=== PATIENT | male | born 2000 | race Caucasian/White ===

== ENCOUNTER 2023-01-25 19:11 | Emergency (ER) | payer OTHER, SELFPAY ==
[2023-01-25 19:31] VITALS: BP 118/58; PULSE 102; RESP 16; TEMP 37.2; O2SAT 100
--- NOTE | 2023-01-25 19:36 | ED.URI ---
HPI - URI/Sore Throat General Chief Complaint: Upper Respiratory Infection Stated Complaint: Congestion;Sore Throat;Fever Time Seen by Provider: 01/25/23 19:31 Source: patient and RN notes reviewed Mode of arrival: ambulatory Limitations: no limitations History of Present Illness HPI Narrative: Patient presents today with 1 week history of postnasal drip, sore throat, congestion, left ear pain, chills and sweats, body aches. Currently rates his pain 7/10 and has been taking DayQuil with mild relief. Denies known sick contacts. No history of asthma or COPD. He is a nonsmoker. Patient was on amoxicillin a month ago for 10 days for upper respiratory symptoms. Related Data Allergies Allergy/AdvReac Type Severity Reaction Status Date / Time No Known Allergies Allergy Verified 01/25/23 19:28 Review of Systems Review of Systems: CONSTITUTIONAL: Denies fever..+ body aches, chills, EYES: Denies visual changes, redness, or discharge. ENT: Denies rhinorrhea. + congestion, sore throat, postnasal drip, left ear pain CARDIOVASCULAR: Denies chest pain, palpitations, or edema. RESPIRATORY: Denies cough or dyspnea. GASTROINTESTINAL: Denies abdominal pain, nausea, vomiting, or diarrhea. GENITOURINARY: Denies dysuria or hematuria. SKIN: Denies rash, itching, or wounds. MUSCULOSKELETAL: Denies back pain, joint pain, or myalgia. NEUROLOGIC: Denies headache, numbness, tingling, or weakness. PSYCH: Denies depression or anxiety. PMFSH Comments At time of signature, I have reviewed and agree with nursing past medical, surgical, social and family history unless otherwise noted. Please see nursing chart for further information. There is no relevant family history pertinent to the presenting complaint Exam Narrative: GENERAL: Well-appearing, well-nourished, and in no acute distress. HEAD: Normocephalic, atraumatic. EYES: EOMI. No redness or drainage. Conjunctivae normal. ENT: Mucous membranes pink and moist. Nares clear. No rhinorrhea. TMs normal bilaterally. Throat erythematous posteriorly with mild amount of postnasal drainage. No edema or exudate. Uvula midline. NECK: Normal AROM. Supple. No lymphadenopathy. CHEST: No respiratory distress. Clear to auscultation. HEART: Regular rate and rhythm. No murmur appreciated. Normal peripheral pulses. EXTREMITIES: Normal range of motion. No edema. SKIN: Warm, dry, no rash. Capillary refill normal. Normal skin turgor. NEURO: No focal deficits. Alert and oriented x3. Gait steady. PSYCH: Normal affect. No signs of depression or anxiety. Course Course Level of Care: Express Care Visit Vital Signs Vital signs: Vital Signs Temperature 99 F 01/25/23 19:31 Pulse Rate 102 H 01/25/23 19:31 Respiratory Rate 16 01/25/23 19:31 Blood Pressure 118/58 L 01/25/23 19:31 Pulse Oximetry 100 01/25/23 19:31 Temperature 99 F 01/25/23 19:31 Pulse Rate 102 H 01/25/23 19:31 Respiratory Rate 16 01/25/23 19:31 Blood Pressure 118/58 L 01/25/23 19:31 Pulse Oximetry 100 01/25/23 19:31 Reviewed MDM - URI/Sore Throat MDM Narrative Medical decision making narrative: Rapid strep positive. Prescription for amoxicillin sent to pharmacy. Anticipatory guidance given.. Differential Diagnosis Differential diagnosis: Likely upper respiratory infection, otitis media, sinusitis, viral infection, pharyngitis and other (Strep throat) Lab Data Attestation: I reviewed the patient's lab results. Lab results narrative: Rapid strep positive Critical Care Time Critical Care Time Critical Care Time: No Discharge Plan Discharge Clinical Impression: Strep throat Patient Disposition: Home, Self-Care Condition: Stable Instructions: Antibiotic Form, Strep Throat (DC) Additional Instructions: Your rapid strep screen is positive. Please take the Keflex as prescribed until gone. You will be contagious for 24 hours after starting the medication. Take ibuprofen orall
== END 2023-01-25 19:48 | disposition home or self-care (01) ==
PROVIDERS: Emergency Provider Nurse Practitioner
DX: J02.0 Streptococcal pharyngitis (principal)
CPT/HCPCS: 87880; 99213; G0463

== ENCOUNTER 2025-04-06 16:19 | Emergency (ER) | payer OTHER, SELFPAY ==
[2025-04-06 16:33] VITALS: BP 102/51; PULSE 137; RESP 18; TEMP 38.8; O2SAT 100
[2025-04-06 17:01] LABS: EDCOVIDSCREEN Negative (Negative); EDINFLUASCREEN Negative (Negative); EDINFLUBSCREEN Negative (Negative)
[2025-04-06 17:01] LABS: EDSTREPNEGPOS1 Positive (Negative)
--- NOTE | 2025-04-06 17:16 | ED.URI ---
HPI - URI/Sore Throat General Chief Complaint: Upper Respiratory Infection Stated Complaint: sick Time Seen by Provider: 04/06/25 17:11 Source: patient and RN notes reviewed Mode of arrival: ambulatory Limitations: no limitations History of Present Illness HPI Narrative: 24-year-old male patient presents today complaining of chills body aches, sore throat, nasal congestion, chest burning since yesterday, worse symptoms today. He has been taking Tylenol and ibuprofen with mild relief. No recent antibiotic use. Related Data Allergies Allergy/AdvReac Type Severity Reaction Status Date / Time No Known Allergies Allergy Verified 04/06/25 16:25 [facility] Comments At time of signature, I have reviewed and agree with nursing past medical, surgical, social and family history unless otherwise noted. Please see nursing chart for further information. There is no relevant family history pertinent to the presenting complaint Exam Narrative: GENERAL: Mildly ill-appearing, well-nourished, and in no acute distress. HEAD: Normocephalic, atraumatic. EYES: EOMI. No redness or drainage. Conjunctivae normal. ENT: Mucous membranes pink and moist. Nares clear. No rhinorrhea. TMs normal bilaterally. Throat mildly erythematous without edema or exudate. Uvula midline. NECK: Normal AROM. Supple. No lymphadenopathy. CHEST: No respiratory distress. Clear to auscultation. HEART: Regular rhythm. No murmur appreciated.+ tachycardic EXTREMITIES: Normal range of motion. No edema. SKIN: Warm, dry, no rash. Capillary refill normal. Normal skin turgor. NEURO: No focal deficits. Alert and oriented x3. Gait steady. PSYCH: Normal affect. No signs of depression or anxiety. Course Course Level of Care: Express Care Visit Vital Signs Vital signs: Vital Signs Temperature 101.9 F H 04/06/25 16:33 Pulse Rate 137 H 04/06/25 16:33 Respiratory Rate 18 04/06/25 16:33 Blood Pressure 102/51 L 04/06/25 16:33 Pulse Oximetry 100 04/06/25 16:33 Temperature 101.9 F H 04/06/25 16:33 Pulse Rate 137 H 04/06/25 16:33 Respiratory Rate 18 04/06/25 16:33 Blood Pressure 102/51 L 04/06/25 16:33 Pulse Oximetry 100 04/06/25 16:33 Reviewed MDM MDM Narrative Medical decision making narrative: 24-year-old male patient presents today complaining of chills body aches, sore throat, nasal congestion, chest burning since yesterday, worse symptoms today. He has been taking Tylenol and ibuprofen with mild relief. Upon exam, patient is mildly ill appearing with mildly erythematous throat without edema or exudate. Patient is tachycardic as well. Rapid strep positive. COVID and influenza negative. He will be started on a course of amoxicillin for the strep throat. Patient agrees with plan. Tachycardia likely due to fever at this time. Anticipatory guidance and ED precautions given. Differential Diagnosis Differential Diagnosis: COVID-19, influenza, strep throat, URI Lab Data [facility] Lab Attestation statement: I personally reviewed the patient's lab results. Labs: Lab Results 04/06/25 04/06/25 Range/Units 16:41 16:53 POC Influenza A Ag Negative (Negative) POC Influenza B Ag Negative (Negative) POC SARS CoV-2 Ag Negative (Negative) POC Grp A Strep Screen Positive (Negative) Critical Care Time Critical Care Time Critical Care Time: No Discharge Plan Discharge Clinical Impression: Strep throat Patient Disposition: Home Condition: Stable Instructions: Antibiotic Form, Strep Throat (DC) Additional Instructions: Your influenza and COVID-19 tests are negative today. You have tested positive for strep throat. Please take the amoxicillin as prescribed until gone. You will be contagious for 24 hours after starting the medication. Take Tylenol or Ibuprofen for pain or fever, if able. Rest and stay hydrated. Follow up with your PCP in 3 days if symptoms are not improving. Go to the ER immediately if you develop worsening symptoms such as shortness of breath, difficulty swallowing. Patient Language: Serbian Prescriptions: New amoxicillin 875 mg tablet 875 mg PO Q12H 10 Days Qty: 20 0RF Follow-up/Referrals: PHYSICIAN,SENIOR INFRASTRUCTURE ARCHITECT [Primary Care Provider, Internal Medicine] Stand Alone Forms: Work/School Release IP Time of Disposition: 17:20
== END 2025-04-06 17:23 | disposition home or self-care (01) ==
PROVIDERS: Emergency Provider Nurse Practitioner
DX: J02.0 Streptococcal pharyngitis (principal); Z20.822 Contact with and (suspected) exposure to COVID-19
CPT/HCPCS: 87426; 87804; 87880; 99213; G0463